=== PATIENT | female | born 1960 | race Caucasian/White ===

== ENCOUNTER 2018-09-22 01:40 | Emergency (ER) | payer OTHER ==
[2016-10-05 17:13] VITALS: Wt 87.1 kg
[~2018-09-22 01:40] MED LIST: ASPI-757 PO; CELE-1 PO; CIPR-345 PO; HYDR-318 PO; HYDR100T5 PO; HYDR2TAB74 PO; IBUP-56 PO; LOSA50TA80 PO; METO-257 PO; NIFE90TA51 PO; ONDA4TAB97 PO; PROM-110 PO; SPIR50TA30 PO
[2018-09-22] MEDS ORDERED: ACET-2146 PO (02:07)
[2018-09-22] MEDS ORDERED: LOSA25TA57 PO (02:07)
[2018-09-22] MEDS ORDERED: CHLOR25 PO (02:10)
--- NOTE | 2018-09-22 02:17 | ER Report ---
History and Physical Time Seen By MD: 02:17 Hx. of Stated Complaint: PATIENT STARTED HAVING PAIN RIGHT BUTTOCK LOWER BACK, SINCE MONDAY, THE PAIN HAS NOW MOVED INTO "THE SMALL OF LOWER BACK", PATIENT STATES SHE HAS LOTRAB LEFT OVER FROM A HIP REPLACEMENT 2YEARS AGO, THAT SHE TOOK LAST NIGHT AND TONIGHT, PATIENT HAS BEEN TAKING TYLENOL IN ADDITION. PATIENT STATES SHE CAN'T HAVE NSAIDS DUE TO CHRONIC KIDNEY DISEASE. PATIENT STATES PAIN IS NOT CONSTANT BUT HAVING FREQUENT SPAMS, ESPECIALLY WHEN SHE TRYS TO SIT OR LAY DOWN. HPI/ROS CHIEF COMPLAINT: Back pain HISTORY OF PRESENT ILLNESS: This is a 58-year-old female. She is having some pain that started several days ago episodically in the sciatic area. Now having some pain going into her mid low back area. Having muscle spasms tonight. Worsen with trying to sit or lay down, seems better standing up. No fevers or chills. No weakness. Had radiation down right leg yesterday, but no radiation now. No numbness. No saddle area numbness. No bowel or bladder incontinence or inability to move bowels or relieve bladder. No injuries or overuse. No prior back problems. Has had hip replacement. Was on brief steroid taper recently for her first episode of gout. Tried taking some left over Hydrocodone (from hip surgery) and helped a little. Has chronic kidney disease, so cannot take NSAIDs. Allergies: Coded Allergies: NSAIDS (Non-Steroidal Anti-Inflamma (Verified Allergy, Unknown, CHRONIC KIDNEY DISEASE, CAN'T HAVE NSAIDS., 09/22/18) alcohol (Verified Allergy, Unknown, 09/22/18) pt states mother has anaphylaxic shock with alcohol, when she started drinking she would become very red Home Meds Active Scripts Prednisone (PREDNISONE) 20 Mg Tablet, 40 MG PO QDAY, #8 TAB 0 Refills Prov:JAYLA LEMOS MD 09/22/18 Tizanidine Hcl (TIZANIDINE HCL) 4 Mg Tablet, 4 MG PO Q8H PRN for SPASMS, #20 TAB 0 Refills Prov:JAYLA LEMOS MD 09/22/18 Oxycodone Hcl/Acetaminophen (PERCOCET 5-325 MG TABLET) 1 Each Tablet, 1 EACH PO Q4H PRN for PAIN, #12 TAB 0 Refills Prov:JAYLA LEMOS MD 09/22/18 Reported Medications Chlorthalidone (CHLORTHALIDONE) 25 Mg Tab, 25 MG PO QDAY, TAB 09/22/18 Acetaminophen 500 Mg Tab (ACETAMINOPHEN EXTRA STRENGTH) 500 Mg Tablet, 500 MG PO Q4-6H PRN for PAIN, TAB 09/22/18 Losartan Potassium (LOSARTAN POTASSIUM) 25 Mg Tablet, 25 MG PO QDAY 09/22/18 Hydrocodone/Acetaminophen (Lortab 7.5-325 mg Tablet) 1 Each Tablet, 1 TAB PO Q4H PRN for PAIN, #60 10/06/16 Discontinued Reported Medications Celecoxib (CELEBREX) 200 Mg Capsule, 200 MG PO BID, #60 CAPSULE 10/06/16 Losartan Potassium (LOSARTAN POTASSIUM) 50 Mg Tablet, 50 MG PO QAM 09/27/16 Spironolactone (ALDACTONE) 50 Mg Tablet, 50 MG PO QAM 01/30/16 Discontinued Scripts Aspirin (ASPIRIN) 325 Mg Tablet, 325 MG PO QDAY, #0 Take for 30 days after surgery for blood clot prevention Prov:JN CLEARY MD 10/06/16 Reviewed Nurses Notes: Yes Hx Smoking: No Smoking Status: Never Smoker Hx Substance Use Disorder: No Hx Alcohol Use: No Constitutional Vital Sign - Last 24 Hours 09/22/18 09/22/18 09/22/18 01:59 02:03 05:20 Temp 98.6 98.6 Pulse 76 77 75 Resp 20 B/P (MAP) 148/78 148/78 (101) 130/80 (97) Pulse Ox 90 90 91 O2 Delivery Room Air Room Air Room Air Physical Exam General appearance: alert, mild distress with pain from spasming. Musculoskeletal: No pain with palpation of spinous processes down to coccyx. Mild pain in sciatic area, worse on left side. Some mild paraspinous lumbar area pain with palpation. Spasming with sitting down and with attempting the strait leg raises. Gastrointestinal: Abdomen is soft, non tender. Skin: No lesions and no rashes. Cardiovascular: Normal peripheral perfusion. Neurological: Strait leg raises were negative, but did cause spasming. Normal sensation in legs. Strength is normal/equal. DIFFERENTIAL DIAGNOSIS: After history and physical exam differential diagnosis was considered for back pain including muscular strain, sciatica, degenerative disc disease. No signs of radiculopathy. Medical Decision Making EKG/Imaging Imaging LUMBAR SPINE: Indication: Low back pain. Technique: Frontal, lateral, and oblique views were obtained. Comparison: None available. Findings: There is marked disc space narrowing at L5-S1. There is mild disc space narrowing at L4-L5, with grade 1 spondylolisthesis. There is no evidence of fracture or compression deformity. There is uniform mineralization of the skeletal structures. The paraspinal soft tissues appear unremarkable. IMPRESSION: Marked disc space narrowing at L5-S1. No acute deformity. Report Dictated By: Anderson Cardenas MD at 09/22/2018 4:11 AM ED Course/Re-evaluation ED Course Initially treated with oral dose of Lortab and Flexeril. Still having spasming. Norflex was given IM with some improvement, but still with occasional spams. Lumbar imaging shows degenerative changes and narrowing of the lower disc space. Will give Percocet, Tizanidine, and start Prednisone burst. Recommended physical therapy and follow-up with orthopedic surgery. Discussed signs to watch for that would require need for return for re-evaluation and possible MRI an noted below in instructions. Decision to Disposition Date: Sep 22, 2018 Decision to Disposition Time: 05:05 Depart Departure Latest Vital Signs Vital Signs Date Time Temp Pulse Resp B/P (MAP) Pulse Ox O2 Delivery O2 Flow Rate FiO2 09/22/18 05:20 75 130/80 (97) 91 Room Air 09/22/18 02:03 98.6 09/22/18 01:59 20 Impression: Primary Impression: Low back pain Condition: Improved Disposition: HOME OR SELF-CARE New Scripts Prednisone (PREDNISONE) 20 Mg Tablet 40 MG PO QDAY, #8 TAB 0 Refills Prov: JAYLA LEMOS MD 09/22/18 Tizanidine Hcl (TIZANIDINE HCL) 4 Mg Tablet 4 MG PO Q8H PRN for SPASMS, #20 TAB 0 Refills Prov: JAYLA LEMOS MD 09/22/18 Oxycodone Hcl/Acetaminophen (PERCOCET 5-325 MG TABLET) 1 Each Tablet 1 EACH PO Q4H PRN for PAIN, #12 TAB 0 Refills Prov: JAYLA LEMOS MD 09/22/18 Patient Instructions: Acute Low Back Pain (ED) Additional Instructions: Your imaging did show some degenerative changes in the low back and possibility of degenerative disc disease. We recommend starting Prednisone 20mg, 2 tablets once a day for 4 more days. Take the pain medicine Percocet 5/325, one every 4 hours as needed for severe pain. Take the muscle relaxer Tizanidine 4mg, one every 8 hours as needed for muscle spasms. Call and make an appointment with Dr. Flores, or with Dr. Avendaño, at [facility]. Consider starting physical therapy. Return immediately for incontinence of bowel or bladder, saddle area numbness, weakness, or fevers. Problem Qualifiers Primary Impression: Low back pain Chronicity: acute Back pain laterality: bilateral Sciatica presence: with sciatica Sciatica laterality: sciatica of right side Qualified Codes: M54.41 - Lumbago with sciatica, right side JAYLA LEMOS MD Sep 22, 2018 02:17
[2018-09-22] MEDS ORDERED: APAP/HYDROCODONE 325/5 TAB PO ONE (02:40)
[2018-09-22] MEDS ORDERED: CYCLOBENZAPRINE HCL 10 MG TAB PO ONE (02:40)
[2018-09-22] MEDS ORDERED: ORPHENADRINE 60MG/2ML INJ IM ONE (04:15)
--- NOTE | 2018-09-22 04:20 | RADIOLOGY IMAGING REPORT ---
FACILITY: [facility] - [place] PATIENT NAME: Danika Grijalva : 1960 MR: [id number] V: [id number] EXAM DATE: ORDERING PHYSICIAN: JAYLA LEMOS TECHNOLOGIST: Location: [facility] [place] Patient: Danika Grijalva : 1960 Visit/Account:[id number] Date of Sevice: 09/22/2018 LUMBAR SPINE: Indication: Low back pain. Technique: Frontal, lateral, and oblique views were obtained. Comparison: None available. Findings: There is marked disc space narrowing at L5-S1. There is mild disc space narrowing at L4-L5, with grade 1 spondylolisthesis. There is no evidence of fracture or compression deformity. There is uniform mineralization of the skeletal structures. The paraspinal soft tissues appear unremarkable. IMPRESSION: Marked disc space narrowing at L5-S1. No acute deformity. Report Dictated By: Andersno Cardenas MD at 09/22/2018 4:11 AM Report E-Signed By: Anderson Cardenas MD at 09/22/2018 4:16 AM WSN:[id number]
[2018-09-22] MEDS ORDERED: oxyCODONE/ACETAMIN 5/325MG TH 2 TAB/BOTTLE PO ONE (05:05)
[2018-09-22] MEDS ORDERED: predniSONE 20 MG TAB PO ONE (05:05)
[2018-09-22] MEDS ORDERED: OXYC-865 PO (05:10)
[2018-09-22] MEDS ORDERED: TIZA-128 PO (05:10)
[2018-09-22] MEDS ORDERED: PRED20TA6 PO (05:10)
[2018-09-22 05:20] VITALS: BP 130/80
== END 2018-09-22 05:24 | disposition home or self-care (01) ==
LOC: ER 02:16
DX: M54.41 Lumbago with sciatica, right side (principal)
CPT/HCPCS: 72120; 96372; 99283; J2360; J7512